=== PATIENT | male | born 1970 | race Caucasian/White ===

== ENCOUNTER → 2016-12-14 | Outpatient (CLI) | payer OTHER ==
[2016-12-14 14:26] LABS: LYME DISEASE AB IGG NEG (NEG); LYME DISEASE AB IGM NEG (NEG)
== END | disposition home or self-care (01) ==
LOC: C.LABPVFM 09:34
PROVIDERS: ATTEND Nurse Practitioner Family
DX: Z91.89 Other specified personal risk factors, not elsewhere classified (principal)

== ENCOUNTER 2019-12-05 01:39 | Inpatient (IN) ==
[2019-12-05] MEDS ORDERED: SODIUM CHLORIDE 0.9% 1000ML 2,000 ML IV ONE (02:05)
--- NOTE | 2019-12-05 02:10 | Emergency Department Note ---
Impression & Plan Septic shock, Pancytopenia, Elevated LFTs, Acute renal insufficiency ED Provider Note Name: KARLA GARCIA Age: 49 Sex: M Arrives Via: Walk-In Informant: Patient ED Provider: Jude Mccarthy MD Chief Complaint: Chills Impression: Septic Shock Pancytopenia Elevated LFTs Medical Decision Makin yr old healthy male arrives with 48 hours of feeling acutely ill with chills, fevers, rigors, weakness, leg cramping, diarrhea and generalized malaise/fatig ue. Exam he is hypotensive, dehydrated appearing, jaundice and acutely ill. Lungs clear, abdomen soft non-distended, and leg unremarkable without swelling. Immediately had 2 large bore IVs placed, 2 L NSS bolus started and full sepsis labs acquired. Given COVID pandemic testing was sent which returned negative. CXR unremarkable. EKG with some non specific st depressions and t wave abnormalities throughout with some intraventricular block. He was slightly improved BP though still not to his reported normal SBPs of 90s thus 3rd L NSS initiated. Initially improved BP but only transiently and thus 4th L NSS started and peripheral levophed ordered. With pancytopenia, elevated FLTs and reported fevers/chills in setting of recent multiple tick bites, felt that empiric tick borne illness treatment needed thus Rocephin/Doxy used as initial abx. I will note that with negative lyme returned hospitalist already on board and will start Zosyn as well. As patient with continued borderline BPs and need for further stabilization, plan to get to ICU for further management. On eval just prior to transfer he started noted increasing RUQ abdominal pain. At this time I ordered CT abd/pelv (wo con as renal injury), and made hospitalist aware who is comfortable with patient being sent directly to ICU from CT to avoid further delay on getting to ICU. CT results reviewed and immediately made hospitalist aware. Triage/Nursing Notes reviewed by Me Differentials:Infection, dehydration, metabolic abnormality, hypo/hyperglycemia, electrolyte disturbance, anemia, hypoxia, cardiac sources, intracerebral event, toxicologic, neurologic, as well as other pathologies. Vital Signs: reviewed and remarkable for hypotension/tachy Interventions: saline lock, NSS bolus 4L IV, Rocephin 2 gm IV, Doxy 100mg IV, Levophed IV drip Labs:Reviewed and remarkable for pancytopenia, elevated Cr, elevated LFTs with significant hyperbilirubinemia Imaging: X ray results are stated below per my interpretation: Chest: 1 view: No infiltrate, no effusion, normal cardiac border. [facility] Radiologist interpretation reviewed by me: "CT ABDOMEN & PELVIS Without Contrast: Mild hazy nodular airspace disease in the right middle and lower lobes and to lesser degree left lower lobe. May represent infectious/inflammatory pneumonitis. Gallbladder wall thickening and surrounding edema/pericholecystic fluid. May represent acute cholecystitis. Query mild periportal edema or biliary dilation within the liver. No obvious extrahepatic biliary dilation. Bladder wall thickening versus partial distention. Correlate for cystitis. Normal appendix. Mild wall thickening of the mid to distal colon versus partial distention. Radiologist: Priscilla Haney M.D." EKG:Per My Interpretation: Indication Sepsis: NSR 92 bpm, qtc 455. There are inferior ST depressions with an intraventricular block. No Ectopy. No previous for previous for comparison Cardiac/Tele Monitoring: Cardiac Monitoring: An Order was placed for continuous cardiac monitoring. The monitor shows a rate of 90 with a normal sinus rhythm. Consults:Dr Mick GREENE Hospitalist, [facility] ICU aware Plan: Disposition:Hospitalization. Condition: Critical Blood pressure:Hypotensive Prescriptions:None PDMP: n/a History of Present Illness:49 male arrives for evaluation of weakness. Patient notes 48 hours of rapidly worsening weakness and fatigue. Associated chills, rigors and feeling feverish as well as periods of severe diarrhea. Notes both legs feel very weak and heavy to the point of difficulty walking. Admits mild vague headache. Any time he stands symptoms are worse. He has no appetite but has been trying to drink water the last 2 days. No syncope, cp, sob, cough, back pain, abdominal pain, leg swelling, rashes, urinary symptoms. Diarrhea is watery, non bloody and periodic. Notes regular Tick exposure. No recent trauma injuries. No known Covid exposures. ROS: See above HPI for pertinent positives & negatives. A total of 10 systems reviewed and were otherwise negative. Past Medical History:None Past Surgical History:Cervical Surgery Family History:Father - CAD Social History:[place], No tobacco, lives with /children Home Medications:None Allergies:None Vitals:Blood Pressure: 76/47, Pulse 102, RR 18, T 36.8C, O2 97% on RA Physical Exam: GENERAL: Patient is ill appearing and in moderate distress. Dehydrated appearing EYES: Mild scleral jaundice, unremarkable pupils. ENT: Mucous membranes dry, no nasal congestion. NECK: No masses appreciated, nomeningismus, trachea is midline. RESPIRATORY: No dyspnea. Clear to auscultation and equal bilaterally. No wheeze, no rhonchi. CARDIOVASCULAR: Tachy.No murmurs, rubs, gallops appreciated. GASTROINTESTINAL: Abdomen soft, non-tender, no peritonitis.Bowel sounds positive.No masses appreciated. BACK: No midline tenderness, no CVA tenderness EXTREMITIES: Normal motion all extremities, no cyanosis, no edema. NEUROLOGIC: Alert and oriented, no acute motor or sensory deficits, no focal weakness, cranial nerves grossly intact. SKIN: No rash, no jaundice, no diaphoresis. PSYCH: Appropriate GCS: 15 ED Course: Times/Reassessments: Many evaluations and multiple discussions with staff and patient Critical Care: I have personally spent 45 minutes of critical care time in the direct management of this patient. Acute hypotensive septic shock in with elevated bili, pancytopenia, and bumped cr. This was a life/limb threatening event. This 45 minutes is in excess of all separately billable procedures. Jude Mccarthy MD Past Med/Surg History Medical History (Updated 12/05/19 @ 07:53 by ADILENE Wang) No significant past medical history Surgical History (Updated 12/05/19 @ 03:55 by Lawanda Barton DO) No significant past surgical history Family History (Updated 12/05/19 @ 03:55 by Lawanda Barton DO) Other Family history non-contributory Social History (Updated 12/05/19 @ 03:55 by Lawanda Barton DO) Smoking Status: Never smoker Hx Alcohol Use: No Hx Substance Use: No Preferred Language: Haitian Communication Ability: Effective Raise Driller Required: No Beliefs That Will Affect Care: None Current Living Situation: Spouse Feels Safe at Home: Yes Assistive Devices: Oxygen - Continuous Allergies Allergies Allergy/AdvReac Type Severity Reaction Status Date / Time No Known Allergies Allergy Verified 12/05/19 02:27 Home Meds Home Medications Medication Instructions Recorded Confirmed acetaminophen [Tylenol Extra 500 - 1,000 mg PO DIRECTED PRN 12/05/19 12/05/19 Strength] Results & Data (ED) Vital Signs Vital Signs - 24 hr 12/05/19 01:50 12/05/19 02:30 12/05/19 02:46 Temperature 36.8 C Temperature Source Oral Pulse Rate 102 H 98 H 91 H Pulse Rate from SpO2 Sensor 97 H 92 H Respiratory Rate 18 20 21 Respiratory Effort / Characteristics Non-Labored Spontaneous Respiratory Depth Normal Blood Pressure 76/47 L 91/58 L 86/50 L Blood Pressure Mean 56 63 52 Pulse Oximetry 97 99 98 Oxygen Delivery Method Room Air Sepsis Recent Fever Within 48 Hours No Sepsis New/Unexplained Change in Mental Status No Sepsis Action Taken by Nursing Physician Notified 12/05/19 03:03 12/05/19 03:13 12/05/19 03:15 Temperature Temperature Source Pulse Rate 85 85 85 Pulse Rate from SpO2 Sensor 85 Respiratory Rate 24 22 25 H Respiratory Effort / Characteristics Respiratory Depth Blood Pressure 73/45 L 74/49 L 73/49 L Blood Pressure Mean 51 59 55 Pulse Oximetry 98 97 97 Oxygen Delivery Method Sepsis Recent Fever Within 48 Hours Sepsis New/Unexplained Change in Mental Status Sepsis Action Taken by Nursing 12/05/19 03:25 12/05/19 03:30 12/05/19 03:35 Temperature Temperature Source Pulse Rate 84 82 85 Pulse Rate from SpO2 Sensor Respiratory Rate 23 24 24 Respiratory Effort / Characteristics Respiratory Depth Blood Pressure 77/53 L 81/42 L 77/55 L Blood Pressure Mean 62 55 62 Pulse Oximetry 99 94 98 Oxygen Delivery Method Sepsis Recent Fever Within 48 Hours Sepsis New/Unexplained Change in Mental Status Sepsis Action Taken by Nursing 12/05/19 03:40 Temperature Temperature Source Pulse Rate 80 Pulse Rate from SpO2 Sensor Respiratory Rate 24 Respiratory Effort / Characteristics Respiratory Depth Blood Pressure 78/56 L Blood Pressure Mean 66 Pulse Oximetry 97 Oxygen Delivery Method Sepsis Recent Fever Within 48 Hours Sepsis New/Unexplained Change in Mental Status Sepsis Action Taken by Nursing Laboratory Data Result diagrams: 12/05/19 02:02 12/05/19 04:56 Lab Results 12/05/19 12/05/19 12/05/19 Range/Units 02:02 02:02 02:02 WBC 1.15 L (4.8-10.8) K/uL RBC 4.17 L (4.7-6.1) M/uL Hgb 13.5 L (14.0-18.0) g/dL Hct 38.7 L (42-52) % MCV 92.8 (80-100) fL MCH 32.4 (25-34) pg MCHC 34.9 (32-36) g/dL RDW Std Deviation 43.3 (36.4-46.3) fL RDW Coeff of Katlyn 12.7 (11.5-14.5) % Plt Count 72 L (130-400) K/uL MPV 9.6 (7.4-10.4) fL Immature Gran % (Auto) 0.9 % Neut % (Auto) 92.1 % Lymph % (Auto) 6.1 % Carlisle % (Auto) 0.9 % Eos % (Auto) 0.0 % Baso % (Auto) 0.0 % Reticulocyte % (Auto) (0.5-2.0) % Neut # (Auto) 1.06 L (1.4-6.5) K/uL Lymph # (Auto) 0.07 L (1.2-3.4) K/uL Carlisle # (Auto) 0.01 L (0.11-0.59) K/uL Eos # (Auto) 0.00 (0-0.5) K/uL Baso # (Auto) 0.00 (0-0.2) K/uL Reticulocyte # (0.02-0.10) 10^6/uL Immature Gran # (Auto) 0.01 (0.00-0.02) K/uL Toxic Vacuolation 1+ Platelet Estimate Decreased L (Normal) PT (9.0-12.0) Seconds INR (0.9-1.1) Sodium 133 L (136-145) mmol/L Potassium (3.5-5.1) mmol/L Chloride 98 (98-107) mmol/L Carbon Dioxide 27 (21-32) mmol/L Anion Gap 8.0 (3-11) BUN 47 H (7-18) mg/dl Creatinine 2.19 H (0.6-1.4) mg/dl Est Cr Clr Drug Dosing Not Reportable Est GFR ( Amer) 39.8 Est GFR (Non-Af Amer) 34.3 BUN/Creatinine Ratio 21.4 H (10-20) Glucose 107 H (70-99) mg/dl Lactate (0.4-2.0) mmol/L Calcium 8.5 (8.5-10.1) mg/dl Magnesium (1.8-2.4) mg/dl Total Bilirubin 4.0 H (0.2-1) mg/dl Direct Bilirubin (0-0.2) mg/dl AST (15-37) U/L ALT 49 (12-78) U/L Alkaline Phosphatase 145 H (45-117) U/L Lactate Dehydrogenase (87-241) U/L Total Creatine Kinase (39-308) U/L Troponin I < 0.015 (0-0.045) ng/ml Total Protein 7.1 (6.4-8.2) gm/dl Albumin 3.0 L (3.4-5.0) gm/dl Lipase 341 (73-393) U/L Procalcitonin (0-0.5) ng/ml Lyme Disease IgG Ab Negative (Negative) Lyme Disease IgM Ab Negative (Negative) COVID-19 Eval Order COVID-19 PCR (Negative) 12/05/19 12/05/19 12/05/19 Range/Units 02:02 02:02 02:02 WBC (4.8-10.8) K/uL RBC (4.7-6.1) M/uL Hgb (14.0-18.0) g/dL Hct (42-52) % MCV (80-100) fL MCH (25-34) pg MCHC (32-36) g/dL RDW Std Deviation (36.4-46.3) fL RDW Coeff of Katlyn (11.5-14.5) % Plt Count (130-400) K/uL MPV (7.4-10.4) fL Immature Gran % (Auto) % Neut % (Auto) % Lymph % (Auto) % Carl[place] % (Auto) % Eos % (Auto) % Baso % (Auto) % Reticulocyte % (Auto) (0.5-2.0) % Neut # (Auto) (1.4-6.5) K/uL Lymph # (Auto) (1.2-3.4) K/uL Carlisle # (Auto) (0.11-0.59) K/uL Eos # (Auto) (0-0.5) K/uL Baso # (Auto) (0-0.2) K/uL Reticulocyte # (0.02-0.10) 10^6/uL Immature Gran # (Auto) (0.00-0.02) K/uL Toxic Vacuolation Platelet Estimate (Normal) PT 10.9 (9.0-12.0) Seconds INR 1.0 (0.9-1.1) Sodium (136-145) mmol/L Potassium (3.5-5.1) mmol/L Chloride (98-107) mmol/L Carbon Dioxide (21-32) mmol/L Anion Gap (3-11) BUN (7-18) mg/dl Creatinine (0.6-1.4) mg/dl Est Cr Clr Drug Dosing Est GFR ( Amer) Est GFR (Non-Af Amer) BUN/Creatinine Ratio (10-20) Glucose (70-99) mg/dl Lactate (0.4-2.0) mmol/L Calcium (8.5-10.1) mg/dl Magnesium (1.8-2.4) mg/dl Total Bilirubin (0.2-1) mg/dl Direct Bilirubin (0-0.2) mg/dl AST (15-37) U/L ALT (12-78) U/L Alkaline Phosphatase (45-117) U/L Lactate Dehydrogenase (87-241) U/L Total Creatine Kinase (39-308) U/L Troponin I (0-0.045) ng/ml Total Protein (6.4-8.2) gm/dl Albumin (3.4-5.0) gm/dl Lipase (73-393) U/L Procalcitonin (0-0.5) ng/ml Lyme Disease IgG Ab (Negative) Lyme Disease IgM Ab (Negative) COVID-19 Eval Order Covid19 Done at [facility] COVID-19 PCR NEGATIVE (Negative) 12/05/19 12/05/19 12/05/19 Range/Units 02:02 02:02 02:07 WBC (4.8-10.8) K/uL RBC (4.7-6.1) M/uL Hgb (14.0-18.0) g/dL Hct (42-52) % MCV (80-100) fL MCH (25-34) pg MCHC (32-36) g/dL RDW Std Deviation (36.4-46.3) fL RDW Coeff of Katlyn (11.5-14.5) % Plt Count (130-400) K/uL MPV (7.4-10.4) fL Immature Gran % (Auto) % Neut % (Auto) % Lymph % (Auto) % [place] % (Auto) % Eos % (Auto) % Baso % (Auto) % Reticulocyte % (Auto) 0.8 (0.5-2.0) % Neut # (Auto) (1.4-6.5) K/uL Lymph # (Auto) (1.2-3.4) K/uL [place] # (Auto) (0.11-0.59) K/uL Eos # (Auto) (0-0.5) K/uL Baso # (Auto) (0-0.2) K/uL Reticulocyte # 0.03 (0.02-0.10) 10^6/uL Immature Gran # (Auto) (0.00-0.02) K/uL Toxic Vacuolation Platelet Estimate (Normal) PT (9.0-12.0) Seconds INR (0.9-1.1) Sodium (136-145) mmol/L Potassium (3.5-5.1) mmol/L Chloride (98-107) mmol/L Carbon Dioxide (21-32) mmol/L Anion Gap (3-11) BUN (7-18) mg/dl Creatinine (0.6-1.4) mg/dl Est Cr Clr Drug Dosing Est GFR ( Amer) Est GFR (Non-Af Amer) BUN/Creatinine Ratio (10-20) Glucose (70-99) mg/dl Lactate 2.6 H* (0.4-2.0) mmol/L Calcium (8.5-10.1) mg/dl Magnesium (1.8-2.4) mg/dl Total Bilirubin (0.2-1) mg/dl Direct Bilirubin (0-0.2) mg/dl AST (15-37) U/L ALT (12-78) U/L Alkaline Phosphatase (45-117) U/L Lactate Dehydrogenase (87-241) U/L Total Creatine Kinase (39-308) U/L Troponin I (0-0.045) ng/ml Total Protein (6.4-8.2) gm/dl Albumin (3.4-5.0) gm/dl Lipase (73-393) U/L Procalcitonin 10.93 H (0-0.5) ng/ml Lyme Disease IgG Ab (Negative) Lyme Disease IgM Ab (Negative) COVID-19 Eval Order COVID-19 PCR (Negative) 12/05/19 12/05/19 12/05/19 Range/Units 03:33 03:33 03:33 WBC (4.8-10.8) K/uL RBC (4.7-6.1) M/uL Hgb (14.0-18.0) g/dL Hct (42-52) % MCV (80-100) fL MCH (25-34) pg MCHC (32-36) g/dL RDW Std Deviation (36.4-46.3) fL RDW Coeff of Katlyn (11.5-14.5) % Plt Count (130-400) K/uL MPV (7.4-10.4) fL Immature Gran % (Auto) % Neut % (Auto) % Lymph % (Auto) % [place] % (Auto) % Eos % (Auto) % Baso % (Auto) % Reticulocyte % (Auto) (0.5-2.0) % Neut # (Auto) (1.4-6.5) K/uL Lymph # (Auto) (1.2-3.4) K/uL [place] # (Auto) (0.11-0.59) K/uL Eos # (Auto) (0-0.5) K/uL Baso # (Auto) (0-0.2) K/uL Reticulocyte # (0.02-0.10) 10^6/uL Immature Gran # (Auto) (0.00-0.02) K/uL Toxic Vacuolation Platelet Estimate (Normal) PT (9.0-12.0) Seconds INR (0.9-1.1) Sodium (136-145) mmol/L Potassium 3.2 L (3.5-5.1) mmol/L Chloride (98-107) mmol/L Carbon Dioxide (21-32) mmol/L Anion Gap (3-11) BUN (7-18) mg/dl Creatinine (0.6-1.4) mg/dl Est Cr Clr Drug Dosing Est GFR ( Amer) Est GFR (Non-Af Amer) BUN/Creatinine Ratio (10-20) Glucose (70-99) mg/dl Lactate (0.4-2.0) mmol/L Calcium (8.5-10.1) mg/dl Magnesium 1.9 (1.8-2.4) mg/dl Total Bilirubin (0.2-1) mg/dl Direct Bilirubin 2.3 H (0-0.2) mg/dl AST 161 H (15-37) U/L ALT (12-78) U/L Alkaline Phosphatase 162 H (45-117) U/L Lactate Dehydrogenase 203 (87-241) U/L Total Creatine Kinase 3725 H (39-308) U/L Troponin I (0-0.045) ng/ml Total Protein (6.4-8.2) gm/dl Albumin (3.4-5.0) gm/dl Lipase (73-393) U/L Procalcitonin (0-0.5) ng/ml Lyme Disease IgG Ab (Negative) Lyme Disease IgM Ab (Negative) COVID-19 Eval Order COVID-19 PCR (Negative) Administered Medications Discontinued Medications Fentanyl Citrate (Fentanyl Citrate 1250mcg/250ml Nss) Confirm Administered Dose 1,250 mcg IV .STK-MED ONE Stop: 12/05/19 06:51 Last Admin: 12/05/19 07:38 Dose: Not Given Documented by: [id number] Sodium Chloride (Nss 1000ml) 2,000 mls @ 999 mls/hr IV .Q2H1M ONE Stop: 12/05/19 04:05 Last Infusion: 12/05/19 03:05 Dose: 0 mls/hr Documented by: [id number] Admin: 12/05/19 02:10 Dose: 999 mls/hr Documented by: [id number] Sodium Chloride (Nss 1000ml) 1,000 mls @ 999 mls/hr IV .Q1H1M ONE Stop: 12/05/19 03:31 Last Infusion: 12/05/19 03:44 Dose: 0 mls/hr Documented by: [id number] Admin: 12/05/19 02:43 Dose: 999 mls/hr Documented by: [id number] Ceftriaxone Sodium (Rocephin) 2,000 mg in 70 mls @ 140 mls/hr IV NOW STA Stop: 12/05/19 03:20 Last Infusion: 12/05/19 03:30 Dose: 0 mls/hr Documented by: [id number] Admin: 12/05/19 03:00 Dose: 140 mls/hr Documented by: [id number] Doxycycline Hyclate 100 mg/ (Dextrose) 110 mls @ 50 mls/hr IV NOW STA Stop: 12/05/19 05:02 Last Infusion: 12/05/19 06:00 Dose: 0 mls/hr Documented by: [id number] Admin: 12/05/19 03:32 Dose: 50 mls/hr Documented by: [id number] Norepinephrine Bitartrate 8 mg (/ Dextrose) 508 mls @ 68.313 mls/hr IV .Q7H27M [facility]; Protocol Stop: 01/04/20 03:14 Last Admin: 12/05/19 09:43 Dose: 0.22 mcg/kg/min, 68.3 mls/hr Documented by: [id number] Cosigned by: [id number] Titration: 12/05/19 09:43 Dose: 0.26 mcg/kg/min, 80.7 mls/hr Documented by: [id number] Cosigned by: [id number] Titration: 12/05/19 04:23 Dose: 0.26 mcg/kg/min, 80.7 mls/hr Documented by: [id number] Titration: 12/05/19 03:57 Dose: 0.2 mcg/kg/min, 62.1 mls/hr Documented by: [id number] Titration: 12/05/19 03:46 Dose: 0.16 mcg/kg/min, 49.7 mls/hr Documented by: [id number] Titration: 12/05/19 03:37 Dose: 0.1 mcg/kg/min, 31.1 mls/hr Documented by: [id number] Admin: 12/05/19 03:25 Dose: 0.05 mcg/kg/min, 15.5 mls/hr Documented by: [id number] Cosigned by: [id number] Sodium Chloride (Nss 1000ml) 1,000 mls @ 999 mls/hr IV .Q1H1M ONE Stop: 12/05/19 04:10 Last Infusion: 12/05/19 03:57 Dose: 0 mls/hr Documented by: [id number] Admin: 12/05/19 03:14 Dose: 999 mls/hr Documented by: [id number] Sodium Chloride (Nss 1000ml) 1,000 mls @ 200 mls/hr IV .Q5H BENNY Stop: 01/04/20 03:59 Last Infusion: 12/05/19 05:17 Dose: 0 mls/hr Documented by: [id number] Admin: 12/05/19 04:09 Dose: 200 mls/hr Documented by: [id number] Metronidazole (Flagyl) 500 mg in 100 mls @ 100 mls/hr IV Q8H BENNY Stop: 12/15/19 05:59 Last Infusion: 12/05/19 06:59 Dose: 0 mls/hr Documented by: [id number] Admin: 12/05/19 05:43 Dose: 100 mls/hr Documented by: [id number] Sodium Chloride (Nss 1000ml) 1,000 mls @ 125 mls/hr IV .Q8H BENNY Stop: 12/05/19 21:06 Last Admin: 12/05/19 05:42 Dose: 125 mls/hr Documented by: [id number] Vasopressin 20 units/ Sodium (Chloride) 101 mls @ 12.12 mls/hr IV .Q8H20M BENNY Stop: 01/04/20 05:14 Last Admin: 12/05/19 05:42 Dose: 0.04 unit/min, 12.1 mls/hr Documented by: [id number] Cosigned by: [id number] Cefepime HCl 2,000 mg/ Syringe 20 mls @ 5 mls/min IV ONE ONE; Protocol Stop: 12/05/19 05:48 Last Admin: 12/05/19 05:55 Dose: 5 mls/min Documented by: [id number] Potassium Chloride (K Hair / Wtr) 10 meq in 100 mls @ 100 mls/hr IV Q1H BENNY Stop: 12/05/19 09:59 Last Infusion: 12/05/19 10:45 Dose: 0 mls/hr Documented by: [id number] Admin: 12/05/19 09:43 Dose: 100 mls/hr Documented by: [id number] Infusion: 12/05/19 09:43 Dose: 100 mls/hr Documented by: [id number] Admin: 12/05/19 08:43 Dose: 100 mls/hr Documented by: [id number] Infusion: 12/05/19 08:41 Dose: 100 mls/hr Documented by: [id number] Admin: 12/05/19 07:41 Dose: 100 mls/hr Documented by: [id number] Infusion: 12/05/19 06:57 Dose: 100 mls/hr Documented by: [id number] Admin: 12/05/19 05:57 Dose: 100 mls/hr Documented by: [id number] Hydrocortisone Sodium (Succinate 100 mg/ Syringe) 2 mls @ 4 mls/min IV ONE ONE Stop: 12/05/19 06:31 Last Admin: 12/05/19 06:57 Dose: 4 mls/min Documented by: [id number] Fentanyl Citrate (Fentanyl Drip) 1,250 mcg in 250 mls @ 5 mls/hr IV .Q50H PRN; Protocol PRN Reason: Pain Stop: 12/19/19 06:47 Last Titration: 12/05/19 11:00 Dose: 0 mcg/hr, 0 mls/hr Documented by: [id number] Cosigned by: [id number] Admin: 12/05/19 06:59 Dose: 50 mcg/hr, 10 mls/hr Documented by: [id number] Cosigned by: [id number] Midazolam HCl (Midazolam Hcl 1 Mg/Ml 2ml Vial) Confirm Administered Dose 2 mg .ROUTE .STK-MED ONE Stop: 12/05/19 06:53 Last Admin: 12/05/19 06:58 Dose: 2 mg Documented by: [id number] Miscellaneous (Stat Iv Infusion Titration Per Protocol) 1 ea N/A NOW STA Stop: 12/05/19 03:11 Last Admin: 12/05/19 03:52 Dose: Not Given Documented by: [id number] Miscellaneous (Rapid Sequence Induction Bag) Confirm Administered Dose 1 ea .ROUTE .STK-MED ONE Stop: 12/05/19 06:06 Last Admin: 12/05/19 07:36 Dose: Not Given Documented by: [id number] Propofol (Propofol Iv Emulsion 10 Mg/Ml 100 Ml Vial) Confirm Administered Dose 1,000 mg IV .STK-MED ONE Stop: 12/05/19 06:07 Last Admin: 12/05/19 07:37 Dose: Not Given Documented by: [id number] Propofol (Propofol Iv Emulsion 10 Mg/Ml 100 Ml Vial) Confirm Administered Dose 1,000 mg IV .STK-MED ONE Stop: 12/05/19 08:22 Last Admin: 12/05/19 08:22 Dose: 1,000 mg Documented by: [id number] Cosigned by: [id number] Discharge Plan Visit Data Chief Complaint: Illness Stated Complaint: TIRED,DIARRHEA,PAIN,TROUBLE WALKING - 3 DAYS ED Provider: Jude Mccarthy Discharge Problem: Septic shock, Pancytopenia, Elevated LFTs, Acute renal insufficiency Patient Disposition: Admitted As Inpatient Discharge Instructions Interventions: ED Discharge Assessment Last Done: 12/05/19 04:30
[2019-12-05 02:28] LABS: Prothrombin Time 10.9 Seconds (9.0-12.0)
[2019-12-05] MEDS ORDERED: SODIUM CHLORIDE 0.9% 1000ML 1,000 ML IV ONE ×2 (02:31→03:10)
[2019-12-05 02:47] LABS: Hematocrit (blood only) 38.7 % (42-52); Hemoglobin 13.5 g/dL (14.0-18.0); Mean Corpuscular Hemoglobin 32.4 pg (25-34); Mean Corpuscular Hgb Conc 34.9 g/dL (32-36); Mean Corpuscular Volume 92.8 fL (80-100); Mean Platelet Volume 9.6 fL (7.4-10.4); Platelet Count 72 K/uL (130-400); RDW Coefficient of Variation 12.7 % (11.5-14.5); RDW Standard Deviation 43.3 fL (36.4-46.3); Red Blood Count 4.17 M/uL (4.7-6.1); White Blood Count 1.15 K/uL (4.8-10.8)
[2019-12-05 02:49] LABS: Immature Granulocytes # (auto) 0.01 K/uL (0.00-0.02); Immature Granulocytes % (auto) 0.9 %; Lymphocytes # (auto) 0.07 K/uL (1.2-3.4); Lymphocytes % (auto) 6.1 %; Monocytes # (auto) 0.01 K/uL (0.11-0.59); Monocytes % (auto) 0.9 %; Neutrophils # (auto) 1.06 K/uL (1.4-6.5); Neutrophils % (auto) 92.1 %; Platelet Estimate Decreased (Normal); Toxic Vacuolation 1+
[2019-12-05] MEDS ORDERED: cefTRIAXone SODIUM 2,000 MG/70 ML BAG IV STA (02:51)
[2019-12-05] MEDS ORDERED: DOXYCYCLINE HYCLATE 100 MG in DEXTROSE 5% 100 ML IV STA (02:51)
[2019-12-05 02:55] LABS: Alanine Aminotransferase 49 U/L (12-78); Alkaline Phosphatase 145 U/L (45-117); BUN Creatinine Ratio 21.4 (10-20); Blood Urea Nitrogen 47 mg/dl (7-18); Calcium 8.5 mg/dl (8.5-10.1); Carbon Dioxide 27 mmol/L (21-32); Chloride 98 mmol/L (98-107); Est GFR (African American) 39.8; Est GFR (Non-African American) 34.3; Glucose 107 mg/dl (70-99); Lipase 341 U/L (73-393); Sodium 133 mmol/L (136-145); Total Protein 7.1 gm/dl (6.4-8.2); Troponin I < 0.015 ng/ml (0-0.045)
[2019-12-05 03:07] LABS: Lyme Ab IgG w/WB Rflx Negative (Negative); Lyme Ab IgM w/WB Rflx Negative (Negative)
[2019-12-05] MEDS ORDERED: STAT IV Infusion **Titration per Protocol STA ×4 (03:10→06:54)
[2019-12-05] MEDS: NOREPINEPHRINE BIT INJ 8 MG in DEXTROSE 5% 500 ML IV SCH ×2 (03:25→09:43)
--- NOTE | 2019-12-05 03:45 | History & Physical Report ---
Date of Service December 05, 2019 Assessment & Plan (1) Hypotension: Patient is a 49yo C male with no significant past medical or surgical history presenting with acute onset fevers/chills/rigors/muscle spasm as well as RUQ pain and diarrhea. Patient hypotensive on arrival to the ER at 76/47. He has been given 3L NSS with no improvement in blood pressure. 1. Neurological: patient is mentating well, answering questions appropriately and following commands. No acute neurological deficits -Continue to monito 2. Cardiovascular: Patient hypotensive upon arrival. Blood pressure unresponsive to 3L NSS. He is currently receiving his 4th liter of IVF and Levophed has been initiated. ?septic shock + hypovolemia . No SOB/CP or hypoxia to suggest PE. Extremities are warm, troponin negative, no EKG evidence of ischemia to suggest cardiogenic source -Check random cortisol -Continue IVF - NSS at 125mL/hr x 2 liters -Levophed - titrate to target MAP of 65. Patient has two large PIVs in place 3. Pulmonary: adequate oxygenation and ventilation on room air. No acute process noted on CXR -Supplemental O2 as needed 4. Gastrointestinal: Patient with abnormal LFTs, obstructive pattern with elevated AP of 162 and Tbili of 4. Also with thrombocytopenia. INR is normal. ALT is normal as well. Repeat AST is pending. ?Cholangitis, ?Tick borne illness -Check Dbili -CT Scan without contrast ordered -Patient should have a CT of the abdomen performed when BP improves and he is more stable 5. Genitourinary: Elevated BUN=47 and Cr=2.19. K=3.2 and HCO3=27. Baseline renal function unknown. Presumed DOM -IVF as above -Monitor renal function -Monitor intake/output -Avoid nephrotoxic agents -Renal dosing where needed 6. Hematology: Patient with pancytopenia. Normochromic/normocytic anemia, leukopenia with neutropenia and lymphopenia, thrombocytopenia with plt=72, no active bleeding. ?Tick borne or viral illness as underlying cause. No history of prior hematological issues -Check peripheral blood smear -Check reticulocyte count -Check Anaplasmosis, Babesiosis -Neutropenic precautions 7. Infectious Disease: Suspect septic shock as underlying cause of hypotension, ?tick borne illness? intra-abdominal infection like cholangitis or acute cholecystitis -Cultures sent from ER, blood -Awaiting UA and culture -Anaplasmosis and Babesiosis ordered -CT scan without contrast ordered -Antibiotic coverage with Doxycycline 100mg IV BID for possible tick borne illness -Will cover with Ceftriaxone and Flagyl for possible intra-abdominal infection. 8. Endocrine: No active issues -Check random cortisol -MICU blood sugar management per protocol F/E/N - NSS at 125mL/hr, K slightly low at 3.2. Will hold repletion for now given DOM, NPO for now Ppx - Low risk for DVT, thrombocytopenia with plt=72. Will avoid chemoprophylaxis Code - Full Dispo - Admit to MICU Present on Admission?: Yes (2) Pancytopenia: Present on Admission?: Yes (3) Abnormal LFTs: Present on Admission?: Yes (4) DOM (acute kidney injury): Present on Admission?: Yes History of Present Illness Chief Complaint: fevers, chills, myalgias Primary Care Provider: ADILENE Jarvis Richard Cortez is a 49yo C male with no significant past medical or surgical history presenting with hypotension. Patient developed acute onset of fevers/chills/rigors/body aches/muscle spasm starting yesterday. He also has severe RUQ pain, jaundice and scleral icterus. He has had multiple episodes of watery, non-bloody diarrhea and one episode of non-bloody/non-bilious vomiting. He denies CP/cough/SOB. No contact with Covid-19 positive individuals. Covid- 19 testing here is NEGATIVE Patient has had multiple tick bites in the past and has been treated for Lyme disease before. No recent tick bites. No sick contacts or contacts with similar symptoms No recent travel Upon arrival to the ER patient was afebrile, hypotensive at 76/47, tachycardic to 102bpm. He was administered 3L of NSS with no improvement in blood pressure, currently 76/53. Patient with no additional complaints at this time. ER Courese: Ceftriaxone 2gm, Doxycycline 100mg, NSS x 3L, Levophed gtt initiated Allergies Allergy/AdvReac Type Severity Reaction Status Date / Time No Known Allergies Allergy Verified 12/05/19 02:27 Home Medications Home Medications Medication Instructions Recorded Confirmed Type acetaminophen [Tylenol Extra 500 - 1,000 mg PO DIRECTED PRN 09/26/20 09/26/20 History Strength] Past Med/Surg History Medical History (Updated 12/05/19 @ 04:04 by Lawanda Barton DO) No significant past medical history Surgical History (Updated 12/05/19 @ 03:55 by Lawanda Barton DO) No significant past surgical history Family History (Updated 12/05/19 @ 03:55 by Lawanda Barton DO) Other Family history non-contributory Social History (Updated 12/05/19 @ 03:55 by Lawanda Barton DO) Smoking Status: Never smoker Hx Alcohol Use: No Hx Substance Use: No Feels Safe at Home: Yes Review of Systems Review of Systems: All systems reviewed & are unremarkable except as noted in HPI & below Physical Exam Physical Exam: General: thin male resting in bed, mild distress secondary to RUQ discomfort Skin: warm, dry, intact, no rashes or lesions, +Jaundice HEENT: NC/AT, PERRL, EOMI, +icteric sclera, conjunctiva without injection, external ear normal to inspection and nontender, nares patent, dry mucus membranes, dentition intact, no oropharyngeal lesions, neck supple, trachea midline, no LAD, no thyromegaly, no JVD Heart: +S1/S2, regular, no m/r/g Lungs: equal air entry bilaterally, no rales/rhonchi/wheezes Abd: +BS, soft, ND, +RUQ tenderness with voluntary guarding Ext: warm, 2+ pulses in UE/LE bilaterally, no clubbing/cyanosis or edema Neuro: nonfocal, patient AA&O x 4, speech intact, no facial droop, moving all extremities on command with equal strength 5/5 Results & Data Results & Data ([facility]) Vital Signs (Past 12 Hours) Vital Signs Temp Pulse Resp BP Pulse Ox 12/05/19 03:35 85 24 77/55 L 98 12/05/19 03:30 82 24 81/42 L 94 12/05/19 03:25 84 23 77/53 L 99 12/05/19 03:15 85 25 H 73/49 L 97 12/05/19 03:13 85 22 74/49 L 97 12/05/19 03:03 85 24 73/45 L 98 12/05/19 02:46 91 H 21 86/50 L 98 12/05/19 02:30 98 H 20 91/58 L 99 12/05/19 01:50 36.8 C 102 H 18 76/47 L 97 Laboratory Results Lab Results 12/05/19 12/05/19 12/05/19 Range/Units 02:02 02:02 02:02 WBC 1.15 L (4.8-10.8) K/uL RBC 4.17 L (4.7-6.1) M/uL Hgb 13.5 L (14.0-18.0) g/dL Hct 38.7 L (42-52) % MCV 92.8 (80-100) fL MCH 32.4 (25-34) pg MCHC 34.9 (32-36) g/dL RDW Std Deviation 43.3 (36.4-46.3) fL RDW Coeff of Katlyn 12.7 (11.5-14.5) % Plt Count 72 L (130-400) K/uL MPV 9.6 (7.4-10.4) fL Immature Gran % (Auto) 0.9 % Neut % (Auto) 92.1 % Lymph % (Auto) 6.1 % Acadia % (Auto) 0.9 % Eos % (Auto) 0.0 % Baso % (Auto) 0.0 % Neut # (Auto) 1.06 L (1.4-6.5) K/uL Lymph # (Auto) 0.07 L (1.2-3.4) K/uL Acadia # (Auto) 0.01 L (0.11-0.59) K/uL Eos # (Auto) 0.00 (0-0.5) K/uL Baso # (Auto) 0.00 (0-0.2) K/uL Immature Gran # (Auto) 0.01 (0.00-0.02) K/uL Toxic Vacuolation 1+ Platelet Estimate Decreased L (Normal) PT (9.0-12.0) Seconds INR (0.9-1.1) Sodium 133 L (136-145) mmol/L Potassium (3.5-5.1) mmol/L Chloride 98 (98-107) mmol/L Carbon Dioxide 27 (21-32) mmol/L Anion Gap 8.0 (3-11) BUN 47 H (7-18) mg/dl Creatinine 2.19 H (0.6-1.4) mg/dl Est Cr Clr Drug Dosing Not Reportable Est GFR ( Amer) 39.8 Est GFR (Non-Af Amer) 34.3 BUN/Creatinine Ratio 21.4 H (10-20) Glucose 107 H (70-99) mg/dl Lactate (0.4-2.0) mmol/L Calcium 8.5 (8.5-10.1) mg/dl Magnesium (1.8-2.4) mg/dl Total Bilirubin 4.0 H (0.2-1) mg/dl Direct Bilirubin (0-0.2) mg/dl AST (15-37) U/L ALT 49 (12-78) U/L Alkaline Phosphatase 145 H (45-117) U/L Total Creatine Kinase (39-308) U/L Troponin I < 0.015 (0-0.045) ng/ml Total Protein 7.1 (6.4-8.2) gm/dl Albumin 3.0 L (3.4-5.0) gm/dl Lipase 341 (73-393) U/L Lyme Disease IgG Ab Negative (Negative) Lyme Disease IgM Ab Negative (Negative) COVID-19 Eval Order COVID-19 PCR (Negative) 12/05/19 12/05/19 12/05/19 Range/Units 02:02 02:02 02:02 WBC (4.8-10.8) K/uL RBC (4.7-6.1) M/uL Hgb (14.0-18.0) g/dL Hct (42-52) % MCV (80-100) fL MCH (25-34) pg MCHC (32-36) g/dL RDW Std Deviation (36.4-46.3) fL RDW Coeff of Katlyn (11.5-14.5) % Plt Count (130-400) K/uL MPV (7.4-10.4) fL Immature Gran % (Auto) % Neut % (Auto) % Lymph % (Auto) % Acadia % (Auto) % Eos % (Auto) % Baso % (Auto) % Neut # (Auto) (1.4-6.5) K/uL Lymph # (Auto) (1.2-3.4) K/uL Acadia # (Auto) (0.11-0.59) K/uL Eos # (Auto) (0-0.5) K/uL Baso # (Auto) (0-0.2) K/uL Immature Gran # (Auto) (0.00-0.02) K/uL Toxic Vacuolation Platelet Estimate (Normal) PT 10.9 (9.0-12.0) Seconds INR 1.0 (0.9-1.1) Sodium (136-145) mmol/L Potassium (3.5-5.1) mmol/L Chloride (98-107) mmol/L Carbon Dioxide (21-32) mmol/L Anion Gap (3-11) BUN (7-18) mg/dl Creatinine (0.6-1.4) mg/dl Est Cr Clr Drug Dosing Est GFR ( Amer) Est GFR (Non-Af Amer) BUN/Creatinine Ratio (10-20) Glucose (70-99) mg/dl Lactate (0.4-2.0) mmol/L Calcium (8.5-10.1) mg/dl Magnesium (1.8-2.4) mg/dl Total Bilirubin (0.2-1) mg/dl Direct Bilirubin (0-0.2) mg/dl AST (15-37) U/L ALT (12-78) U/L Alkaline Phosphatase (45-117) U/L Total Creatine Kinase (39-308) U/L Troponin I (0-0.045) ng/ml Total Protein (6.4-8.2) gm/dl Albumin (3.4-5.0) gm/dl Lipase (73-393) U/L Lyme Disease IgG Ab (Negative) Lyme Disease IgM Ab (Negative) COVID-19 Eval Order Covid19 Done at [facility] COVID-19 PCR NEGATIVE (Negative) 12/05/19 12/05/19 Range/Units 02:07 03:33 WBC (4.8-10.8) K/uL RBC (4.7-6.1) M/uL Hgb (14.0-18.0) g/dL Hct (42-52) % MCV (80-100) fL MCH (25-34) pg MCHC (32-36) g/dL RDW Std Deviation (36.4-46.3) fL RDW Coeff of Katlyn (11.5-14.5) % Plt Count (130-400) K/uL MPV (7.4-10.4) fL Immature Gran % (Auto) % Neut % (Auto) % Lymph % (Auto) % Acad[place] % (Auto) % Eos % (Auto) % Baso % (Auto) % Neut # (Auto) (1.4-6.5) K/uL Lymph # (Auto) (1.2-3.4) K/uL Acadia # (Auto) (0.11-0.59) K/uL Eos # (Auto) (0-0.5) K/uL Baso # (Auto) (0-0.2) K/uL Immature Gran # (Auto) (0.00-0.02) K/uL Toxic Vacuolation Platelet Estimate (Normal) PT (9.0-12.0) Seconds INR (0.9-1.1) Sodium (136-145) mmol/L Potassium 3.2 L (3.5-5.1) mmol/L Chloride (98-107) mmol/L Carbon Dioxide (21-32) mmol/L Anion Gap (3-11) BUN (7-18) mg/dl Creatinine (0.6-1.4) mg/dl Est Cr Clr Drug Dosing Est GFR ( Amer) Est GFR (Non-Af Amer) BUN/Creatinine Ratio (10-20) Glucose (70-99) mg/dl Lactate 2.6 H* (0.4-2.0) mmol/L Calcium (8.5-10.1) mg/dl Magnesium (1.8-2.4) mg/dl Total Bilirubin (0.2-1) mg/dl Direct Bilirubin (0-0.2) mg/dl AST (15-37) U/L ALT (12-78) U/L Alkaline Phosphatase (45-117) U/L Total Creatine Kinase (39-308) U/L Troponin I (0-0.045) ng/ml Total Protein (6.4-8.2) gm/dl Albumin (3.4-5.0) gm/dl Lipase (73-393) U/L Lyme Disease IgG Ab (Negative) Lyme Disease IgM Ab (Negative) COVID-19 Eval Order COVID-19 PCR (Negative) Diagnostic Findings CXR - by my interpretation - trachea is midline, normal cardiac silhouette, no evidence of PNA, PTX or volume overload ECG Additional Comments: EKG with NSR at 92, normal axis, YJ=534, HJY=767, QUi=291, interventricular conduction delay. No previous EKGs available for comparison Code Status & VTE Plan Code Status Full Critical Care Time Critical Care Time: Yes Total Critical Care Time: 55 PG Care Time/CCT Total # of Minutes Spent Total Time Spent with Patient: Total time spent is greater than 50% in coordina tion of care (as documented) at patient's floor/unit and/or counseling patient: Critical Care Time: Yes Total Critical Care Time: 55 Coding Level of Care Code None Diagnoses Hypotension I95.9 Pancytopenia D61.818 Abnormal LFTs R94.5 DOM (acute kidney injury) N17.9 Additional Codes Critical Care Time - Critical Care Time: Yes ([id number]) Time Spent (min) 55
[2019-12-05 03:55] LABS: Potassium 3.2 mmol/L (3.5-5.1)
[2019-12-05] MEDS ORDERED: SODIUM CHLORIDE 0.9% 1000ML 1,000 ML IV SCH ×2 (04:00→05:07)
[2019-12-05 04:16] LABS: Bilirubin Direct 2.3 mg/dl (0-0.2); Magnesium 1.9 mg/dl (1.8-2.4)
[2019-12-05] MEDS ORDERED: ICU PROTOCOL FOR HYPERGLYCEMIA PRN (05:07)
[2019-12-05] MEDS ORDERED: VASOPRESSIN 20 UNITS in 0.9 % SODIUM CHLORIDE 100 ML IV SCH (05:15)
[2019-12-05] MEDS ORDERED: INFLUENZA VIRUS QUAD VACCINE 0.5 ML SYR IM ONE (05:23)
[2019-12-05] MEDS ORDERED: INFLUENZA ADMINISTRATION CHARGE ONE (05:23)
[2019-12-05 05:28] LABS: BUN Creatinine Ratio 19.1 (10-20); Calcium 7.3 mg/dl (8.5-10.1); Creatinine Clr Calc Pharmacy 41.3 ml/min; Est GFR (African American) 36.9; Est GFR (Non-African American) 31.9; Potassium 3.1 mmol/L (3.5-5.1)
[2019-12-05] MEDS ORDERED: CEFEPIME 2,000 MG in SYRINGE 0 ML IV ONE (05:45)
[2019-12-05] MEDS: POTASSIUM CHLORIDE / WTR 10 MEQ/100 ML PLCT IV SCH ×4 (05:57→09:43)
[2019-12-05] MEDS ORDERED: metroNIDAZOLE 500 MG/100 ML BAG IV SCH (06:00)
[2019-12-05] MEDS ORDERED: DOXYCYCLINE HYCLATE 100 MG in DEXTROSE 5% 100 ML IV SCH (06:00)
[2019-12-05] MEDS ORDERED: RAPID SEQUENCE INDUCTION BAG ONE (06:05)
[2019-12-05] MEDS ORDERED: PROPOFOL IV EMULSION 10 MG/ML 100 ML VIAL IV ONE ×2 (06:06→08:21)
[2019-12-05 06:08] LABS: Reticulocyte % 0.8 % (0.5-2.0); Reticulocytes # 0.03 10^6/uL (0.02-0.10)
--- NOTE | 2019-12-05 06:18 | Surgery Consultation ---
Date of Consultation December 05, 2019 Assessment & Plan (1) Septic shock: (2) Pancytopenia: (3) Elevated LFTs: (4) Acute renal insufficiency: (5) Hypotension: (6) Acute cholecystitis: pt is a 49 year -old male who was admitted to ICU for septic shock, IMP: septic shock, pneumonia? Acute cholecystitis, cholangitis? base on severe septic shock, renal failure, pneumonia, acute cholecystitis, pt is candidate for percutaneous drainage gallbladder, no intervention radiologist at this [facility], recommend to transfer to tertiary for further diagnosis and treatment, D/w benefits, risks and alternatives of the transfer, pt understood, he agrees with the transfer. D/W ICU attending. Present on Admission?: Yes History of Present Illness Attending Physician: Lawanda Barton, History of Present Illness Chief Complaint: fevers, chills, myalgias Primary Care Provider: ADILENE Jarvis Richard Cortez is a 49yo C male with no significant past medical or surgical history presenting with hypotension. Patient developed acute onset of fevers/chills/rigors/body aches/muscle spasm starting yesterday. He also has severe RUQ pain, jaundice and scleral icterus. He has had multiple episodes of watery, non-bloody diarrhea and one episode of non-bloody/non-bilious vomiting. He denies CP/cough/SOB. No contact with Covid-19 positive individuals. Covid- 19 testing here is NEGATIVE Patient has had multiple tick bites in the past and has been treated for Lyme disease before. No recent tick bites. No sick contacts or contacts with similar symptoms No recent travel Upon arrival to the ER patient was afebrile, hypotensive at 76/47, tachycardic to 102bpm. He was administered 3L of NSS with no improvement in blood pressure, currently 76/53. Patient with no additional complaints at this time. I ( Brooke Henley MD ) got a call for consult acute cholecystitis with septic shock, I reviewed pt's H/P, labs, CT scan with pt, ER Courese: Ceftriaxone 2gm, Doxycycline 100mg, NSS x 3L, Levophed gtt initiated Allergies Allergy/AdvReac Type Severity Reaction Status Date / Time No Known Allergies Allergy Verified 12/05/19 02:27 Home Medications Home Medications Medication Instructions Recorded Confirmed Type acetaminophen [Tylenol Extra 500 - 1,000 mg PO DIRECTED PRN 12/05/19 12/05/19 History Strength] Past Med/Surg History Medical History (Updated 12/05/19 @ 04:04 by Lawanda Barton DO) No significant past medical history Surgical History (Updated 12/05/19 @ 03:55 by Lawanda Barton DO) No significant past surgical history Family History (Updated 12/05/19 @ 03:55 by Lawanda Barton DO) Other Family history non-contributory Social History (Updated 12/05/19 @ 03:55 by Lawanda Barton DO) Smoking Status: Never smoker Hx Alcohol Use: No Hx Substance Use: No Feels Safe at Home: Yes Review of Systems Review of Systems: All systems reviewed & are unremarkable except as noted in HPI & below Allergies Allergy/AdvReac Type Severity Reaction Status Date / Time No Known Allergies Allergy Verified 12/05/19 02:27 Home Medications Home Medications Medication Instructions Recorded Confirmed Type acetaminophen [Tylenol Extra 500 - 1,000 mg PO DIRECTED PRN 12/05/19 12/05/19 History Strength] Patient History Medical History (Updated 12/05/19 @ 06:22 by Brooke Henley MD) No significant past medical history Surgical History (Updated 12/05/19 @ 03:55 by Lawanda Barton DO) No significant past surgical history Family History (Updated 12/05/19 @ 03:55 by Lawanda Barton DO) Other Family history non-contributory Social History (Updated 12/05/19 @ 03:55 by Lawanda Barton DO) Smoking Status: Never smoker Hx Alcohol Use: No Hx Substance Use: No Preferred Language: Maltese Communication Ability: Effective [employer] Intern[employer] Required: No Beliefs That Will Affect Care: None Current Living Situation: Spouse Feels Safe at Home: Yes Assistive Devices: Oxygen - Continuous Review of Systems Review of Systems: All systems reviewed & are unremarkable except as noted in HPI & below Constitutional: as per Subjective / HPI Eyes: as per Subjective / HPI Ear, Nose, Mouth, Throat: as per Subjective / HPI Respiratory: as per Subjective / HPI Cardiovascular: as per Subjective / HPI Gastrointestinal: as per Subjective / HPI Genitourinary: + as per Subjective / HPI Musculoskeletal: as per Subjective / HPI Integumentary: as per Subjective / HPI Neurologic: as per Subjective / HPI Psychiatric: as per Subjective / HPI Endocrine: as per Subjective / HPI Hematologic / Lymphatic: as per Subjective / HPI Allergy / Immunological: as per Subjective / HPI Physical Exam Constitutional: WD/WN, vitals as above well developed, well nourished, + acute distress and + ill appearing Eyes: PERRL, conjunctivae normal, anicteric sclerae ENMT: external ear and nose normal, oropharynx normal Neck: trachea midline, no thyromegaly Respiratory: on )2 10 L/min mask Cardiovascular: RRR, no murmur, no edema Rate/Rhythm: regular rate and regular rhythm Heart Sounds: normal S1 and normal S2 Gastrointestinal (Abdomen): soft, significant tenderness at RUQ, no rebound pain, no distend, BS + Musculoskeletal: no cyanosis or clubbing, extremities motor strength 5/5 Skin: no rashes, warm and dry Neurologic: patellar DTR's 2+ bilat, sensation intact Psychiatric: Orientation: alert and oriented x 3 Results & Data ([facility]) Vital Signs (Past 12 Hours) Vital Signs Temp Pulse Pulse Resp BP BP Pulse Ox 12/05/19 04:45 37 C 95 H 18 82/62 L 97 12/05/19 04:40 89 20 90/58 L 97 12/05/19 04:30 88 22 84/62 L 95 12/05/19 04:25 88 20 74/46 L 94 12/05/19 04:20 87 20 67/44 L 94 12/05/19 04:15 87 22 73/44 L 93 12/05/19 04:10 88 22 71/43 L 93 12/05/19 04:05 87 24 85/57 L 95 12/05/19 04:00 81 24 76/52 L 95 12/05/19 03:56 84 24 73/47 L 95 12/05/19 03:55 90 24 69/45 L 94 12/05/19 03:50 83 24 76/54 L 95 12/05/19 03:45 79 24 76/53 L 12/05/19 03:40 80 24 78/56 L 97 12/05/19 03:35 85 24 77/55 L 98 12/05/19 03:30 82 24 81/42 L 94 12/05/19 03:25 84 23 77/53 L 99 12/05/19 03:15 85 25 H 73/49 L 97 12/05/19 03:13 85 22 74/49 L 97 12/05/19 03:03 85 24 73/45 L 98 12/05/19 02:46 91 H 21 86/50 L 98 12/05/19 02:30 98 H 20 91/58 L 99 12/05/19 01:50 36.8 C 102 H 18 76/47 L 97 Laboratory Results Abnormal lab results 12/05/19 12/05/19 12/05/19 Range/Units 02:02 02:02 02:02 WBC 1.15 L (4.8-10.8) K/uL RBC 4.17 L (4.7-6.1) M/uL Hgb 13.5 L (14.0-18.0) g/dL Hct 38.7 L (42-52) % Plt Count 72 L (130-400) K/uL Neut # (Auto) 1.06 L (1.4-6.5) K/uL Lymph # (Auto) 0.07 L (1.2-3.4) K/uL Lawrence # (Auto) 0.01 L (0.11-0.59) K/uL Platelet Estimate Decreased L (Normal) Sodium 133 L (136-145) mmol/L Potassium (3.5-5.1) mmol/L BUN 47 H (7-18) mg/dl Creatinine 2.19 H (0.6-1.4) mg/dl BUN/Creatinine Ratio 21.4 H (10-20) Glucose 107 H (70-99) mg/dl Lactate (0.4-2.0) mmol/L Calcium (8.5-10.1) mg/dl Total Bilirubin 4.0 H (0.2-1) mg/dl Direct Bilirubin (0-0.2) mg/dl AST (15-37) U/L Alkaline Phosphatase 145 H (45-117) U/L Total Creatine Kinase (39-308) U/L Albumin 3.0 L (3.4-5.0) gm/dl Procalcitonin 10.93 H (0-0.5) ng/ml 12/05/19 12/05/19 12/05/19 Range/Units 02:07 03:33 03:33 WBC (4.8-10.8) K/uL RBC (4.7-6.1) M/uL Hgb (14.0-18.0) g/dL Hct (42-52) % Plt Count (130-400) K/uL Neut # (Auto) (1.4-6.5) K/uL Lymph # (Auto) (1.2-3.4) K/uL Lawrence # (Auto) (0.11-0.59) K/uL Platelet Estimate (Normal) Sodium (136-145) mmol/L Potassium 3.2 L (3.5-5.1) mmol/L BUN (7-18) mg/dl Creatinine (0.6-1.4) mg/dl BUN/Creatinine Ratio (10-20) Glucose (70-99) mg/dl Lactate 2.6 H* (0.4-2.0) mmol/L Calcium (8.5-10.1) mg/dl Total Bilirubin (0.2-1) mg/dl Direct Bilirubin 2.3 H (0-0.2) mg/dl AST 161 H (15-37) U/L Alkaline Phosphatase 162 H (45-117) U/L Total Creatine Kinase 3725 H (39-308) U/L Albumin (3.4-5.0) gm/dl Procalcitonin (0-0.5) ng/ml 12/05/19 12/05/19 Range/Units 04:56 04:56 WBC (4.8-10.8) K/uL RBC (4.7-6.1) M/uL Hgb (14.0-18.0) g/dL Hct (42-52) % Plt Count (130-400) K/uL Neut # (Auto) (1.4-6.5) K/uL Lymph # (Auto) (1.2-3.4) K/uL Lawrence # (Auto) (0.11-0.59) K/uL Platelet Estimate (Normal) Sodium (136-145) mmol/L Potassium 3.1 L (3.5-5.1) mmol/L BUN 44 H (7-18) mg/dl Creatinine 2.33 H (0.6-1.4) mg/dl BUN/Creatinine Ratio (10-20) Glucose 131 H (70-99) mg/dl Lactate 2.5 H* (0.4-2.0) mmol/L Calcium 7.3 L (8.5-10.1) mg/dl Total Bilirubin (0.2-1) mg/dl Direct Bilirubin (0-0.2) mg/dl AST (15-37) U/L Alkaline Phosphatase (45-117) U/L Total Creatine Kinase (39-308) U/L Albumin (3.4-5.0) gm/dl Procalcitonin (0-0.5) ng/ml CT scan- acute cholecystitis, pneumonia?
[2019-12-05] MEDS ORDERED: HYDROCORTISONE SOD 100 MG in SYRINGE 0 ML IV ONE (06:30)
--- NOTE | 2019-12-05 06:32 | Anesthesiology Progress Note ---
Date of Service Asked by ICU staff to assist in intubation for 49 yo male. Pt admitted diagnosed with acute cholecystitis, aspiration pneumonitis, and sepsis. Planned tor transfer to [facility] and intubation has been deemed necessary for transport by ICU staff and [facility] accepting physician. Airway exam is benign, teeth intact. VSS, SaO2 100% on 02 mask. Pre-O2 with BVM 100% O2. At request of staff, I agreed to medicate pt. I gave propofol 200 mg and Sux 120mg IV. PA intubated pt orally using Glidescope without difficulty. + BLBS ausculted, + ETCO2 detected. CXR pending. Pt left in care of ICU staff and hospitalist. Transfer to [facility] pending. December 05, 2019 Assessment & Plan Admission and Anticipated Discharge Date Admission Date: December 05, 2019 Physical Exam Vital Signs: Last Vital Signs Temp 37 C 12/05/19 04:45 Pulse 95 H 12/05/19 04:45 Resp 18 12/05/19 04:45 BP 82/62 L 12/05/19 04:45 Pulse Ox 97 12/05/19 04:45 Results & Data ([facility]) Medications Administered Norepinephrine Bitartrate 8 mg (/ Dextrose) 508 mls @ 80.734 mls/hr IV .Q6H18M BENNY; Protocol Stop: 01/04/20 03:14 Last Titration: 12/05/19 04:23 Dose: 0.26 mcg/kg/min, 80.7 mls/hr Documented by: [id number] Titration: 12/05/19 03:57 Dose: 0.2 mcg/kg/min, 62.1 mls/hr Documented by: [id number] Titration: 12/05/19 03:46 Dose: 0.16 mcg/kg/min, 49.7 mls/hr Documented by: [id number] Titration: 12/05/19 03:37 Dose: 0.1 mcg/kg/min, 31.1 mls/hr Documented by: [id number] Admin: 12/05/19 03:25 Dose: 0.05 mcg/kg/min, 15.5 mls/hr Documented by: [id number] Cosigned by: [id number] Metronidazole (Flagyl) 500 mg in 100 mls @ 100 mls/hr IV Q8H [facility] Stop: 12/15/19 05:59 Last Admin: 12/05/19 05:43 Dose: 100 mls/hr Documented by: [id number] Sodium Chloride (Nss 1000ml) 1,000 mls @ 125 mls/hr IV .Q8H [facility] Stop: 12/05/19 21:06 Last Admin: 12/05/19 05:42 Dose: 125 mls/hr Documented by: [id number] Vasopressin 20 units/ Sodium (Chloride) 101 mls @ 12.12 mls/hr IV .Q8H20M [facility] Stop: 01/04/20 05:14 Last Admin: 12/05/19 05:42 Dose: 0.04 unit/min, 12.1 mls/hr Documented by: [id number] Cosigned by: [id number] Potassium Chloride (K Hair / Wtr) 10 meq in 100 mls @ 100 mls/hr IV Q1H [facility] Stop: 12/05/19 09:59 Last Admin: 12/05/19 05:57 Dose: 100 mls/hr Documented by: [id number]
[2019-12-05] MEDS ORDERED: FENTANYL BOLUS FROM BAG IV PRN (06:48)
[2019-12-05] MEDS ORDERED: fentaNYL DRIP 1,250 MCG/250 ML BAG IV PRN (06:48)
[2019-12-05] MEDS ORDERED: MIDAZOLAM HCL 1 MG/ML 2ML VIAL ONE (06:52)
[2019-12-05] MEDS ORDERED: MIDAZOLAM HCL 125 MG/250 ML BAG IV PRN (06:54)
[2019-12-05] MEDS ORDERED: MIDAZOLAM BOLUS FROM BAG IV PRN (06:54)
--- NOTE | 2019-12-05 07:25 | Critical Care Consultation ---
Date of Consultation December 05, 2019 Assessment & Plan (1) Acute cholecystitis: Reason Critically Ill: 49-year-old male without medical history presents to the ICU with severe sepsis with likely source of acute cholecystitis per CT imaging. Now intubated and on multiple vasopressors for septic shock. Neuro - Sedation: Versed/fentanyl drips Cardiac - Septic shockgiven patient exam with CT imaging most likely source appears to be cholecystitis and patient to undergo transfer as discussed below -Was also noted to have infectious/inflammatory process and bilateral lung bello on CT imaging, most likely aspiration as patient has continually been vomiting -Now requiring vasopressors, levo and vaso-titrating for maps greater than 65 -CVC and A-line inserted emergently -Cortisol level pending, did stress dose with hydrocortisone 100 mg after lab draw No history of heart failure and patient is reportedly athletic at baseline, troponin negative -Continuous monitoring on telemetry -We will wean pressors as tolerated Respiratory - Acute hypoxic respiratory failurenow mechanically ventilated -ETT 8.0 24 at the teeth, vent settings: 22/500/5/40 percent -Patient did become increasingly hypoxic with significantly increased oxygen demand, decision made to intubate prior to transfer to tertiary center to secure airway GI - CholecystitisCT abdomen preliminary report showed pericholecystic fluid with gallbladder thickening suspicion for cholecystitis and patient presents with right upper quadrant abdominal pain and tenderness -Elevated LFTs and jaundice consistent with diagnosis -Given severity of sepsis patient not candidate for surgical intervention and [place] [facility] plan for percutaneous drainage with IR RENAL/LYTES - AKIlikely prerenal/ATN in the setting of hypotension/septic shock -We will continue IV fluid resuscitation and maintain maps greater than 65 with vasopressors -We will avoid nephrotoxins and renally adjust medications -Monitor creatinine and replete electrolytes as indicated - Foleystrict I's and O's ENDO - No history of diabetes or thyroid disease ICU hyperglycemic protocol HEME - Pancytopeniabone marrow suppression in the event of severe sepsis? -Currently no indication for transfusion -Would defer further work-up to [facility] as patient is now transferring ID - Pro-Darian and lactate elevated Primary source likely cholecystitis given CT abdomen, however noted to have pneumonitis which is likely from aspiration Blood cultures pending UA pending Concern for anaplasmosis given pancytopenia, labs pending COVID-19 negative Continue broad-spectrum antibiotics with cefepime, Flagyl, doxy LINES/IV ACCESS - CVC, A-line, peripheral IVs, ETT, OG tube DVT PROPHYLAXIS - SCDs I have personally spent 70 minutes of critical care time in the direct management of this patient. This is a life/limb threatening event. This includes time spent evaluating patient, direct bedside care, chart review, placing orders, interpretation of diagnostic studies, discussion with consultants, patient, and family members, as well as other required patient management activities. This time is exclusive of all separately billable procedures, and teaching time and separate from and in addition to any other critical care service time. Thank you for allowing us to participate in the care of this patient. Please refer to my attending physician's documentation for any further recommendations. (2) Septic shock: (3) Pancytopenia: (4) Elevated LFTs: (5) DOM (acute kidney injury): (6) Aspiration pneumonitis: (7) Sepsis with acute hypoxic respiratory failure: Supervising Physician Co-Signing Physician Notes Patient seen and examined with Kvng HEAD. I agree with his assessment and plan aside for any additions/exceptions noted: Patient with evidence of septic shock likely from ascending cholangitis. Patient with also evidence of pancytopenia. Will consider sending a rapid HIV study. Other possibilities include TTP/ITP/atypical HUS. Would send a peripheral smear and Lopez 13. Will defer to tertiary care center at this time. Thrombocytopenia may also be from consumption related to sepsis. Fibrinogen le luis a will need to be evaluated. He will need to undergo cholecystostomy tube and possible ascending cholangitis. This will be evaluated in the tertiary Medical Center. Continue full ventilator support. Continue to maintain maps above 65. Patient to DOM. He is getting another 500 mL Normosol bolus. Continue PPI for prophylaxis. Continue broad-spectrum antibiotics. Treating with doxycycline for atypical infections as well. Patient stable to transfer to tertiary care center. History of Present Illness Attending Physician: Avis Machado MD History of Present Illness Patient is a 49-year-old male without significant past medical history who initially presented to the emergency department with complaints of feeling ill with chills, fevers, rigors, weakness, diarrhea, malaise and fatigue that is been ongoing for the past 48 hours. He presented with hypotension and jaundice. He was found to be pancytopenic, elevated LFTs, and DOM. Underwent sepsis protocol and received a total of 4 L NSS bolus in the ED and broad-spectrum antibiotics. Rapid COVID-19 performed in the emergency department and negative. Patient required vasopressors and was transported to the ICU. He underwent CT of the abdomen in route to ICU. Preliminary report of the CT abdomen suggestive of acute cholecystitis and abdominal exam revealed guarding in the right upper quadrant on arrival to the ICU. Case was discussed with the general surgeon, however given that however given that the patient is severely septic, was recommended that patient transfer for percutaneous drainage with IR. [facility] [address] [facility] transfer center was contacted and arrangements were made to transfer patient to [place] and patient was accepted by Dr. Estevez glass enamel mixer. Patient intubated and central line and A-line inserted. Now awaiting arrangements for transport for transfer to tertiary center at [facility]. Allergies Allergy/AdvReac Type Severity Reaction Status Date / Time No Known Allergies Allergy Verified 12/05/19 02:27 Home Medications Home Medications Medication Instructions Recorded Confirmed Type acetaminophen [Tylenol Extra 500 - 1,000 mg PO DIRECTED PRN 12/05/19 12/05/19 History Strength] Patient History Medical History (Updated 12/05/19 @ 07:53 by ADILENE Wang) No significant past medical history Surgical History (Updated 12/05/19 @ 03:55 by Lawanda Barton DO) No significant past surgical history Family History (Updated 12/05/19 @ 03:55 by Lawanda Barton DO) Other Family history non-contributory Social History (Updated 12/05/19 @ 03:55 by Lawanda Barton DO) Smoking Status: Never smoker Hx Alcohol Use: No Hx Substance Use: No Preferred Language: Yi Communication Ability: Effective Electron Microscopist Required: No Beliefs That Will Affect Care: None Current Living Situation: Spouse Feels Safe at Home: Yes Assistive Devices: Oxygen - Continuous Review of Systems Review of Systems: All systems reviewed & are unremarkable except as noted in HPI & below Physical Exam Constitutional: well groomed and cooperative Eyes: PERRL, conjunctivae normal, anicteric sclerae ENMT: external ear and nose normal, oropharynx normal Neck: trachea midline, no thyromegaly Respiratory: normal respiratory effort, lungs clear to auscultation + tachypneic Cardiovascular: RRR, no murmur, no edema Heart Sounds: normal S1 and normal S2 Vessels: no JVD Extremities: normal capillary refill; no edema Gastrointestinal (Abdomen): Bowel sounds normoactive and abdomen is nondistended. Patient did display significant tenderness and guarding which was localized to the right upper quadrant Skin: no rashes, warm and dry Neurologic: PERRL, EOMI, accommodation nl, no face palsy, no dysarthria Psychiatric: A+Ox3, euthymic affect Results & Data Results & Data ([facility]) Vital Signs (Past 12 Hours) Vital Signs Temp Pulse Pulse Resp BP BP Pulse Ox 12/05/19 06:23 83 16 100 12/05/19 04:45 37 C 95 H 18 82/62 L 97 12/05/19 04:40 89 20 90/58 L 97 12/05/19 04:30 88 22 84/62 L 95 12/05/19 04:25 88 20 74/46 L 94 12/05/19 04:20 87 20 67/44 L 94 12/05/19 04:15 87 22 73/44 L 93 12/05/19 04:10 88 22 71/43 L 93 12/05/19 04:05 87 24 85/57 L 95 12/05/19 04:00 81 24 76/52 L 95 12/05/19 03:56 84 24 73/47 L 95 12/05/19 03:55 90 24 69/45 L 94 12/05/19 03:50 83 24 76/54 L 95 12/05/19 03:45 79 24 76/53 L 12/05/19 03:40 80 24 78/56 L 97 12/05/19 03:35 85 24 77/55 L 98 12/05/19 03:30 82 24 81/42 L 94 12/05/19 03:25 84 23 77/53 L 99 12/05/19 03:15 85 25 H 73/49 L 97 12/05/19 03:13 85 22 74/49 L 97 12/05/19 03:03 85 24 73/45 L 98 12/05/19 02:46 91 H 21 86/50 L 98 12/05/19 02:30 98 H 20 91/58 L 99 12/05/19 01:50 36.8 C 102 H 18 76/47 L 97 Coding Level of Care Code Critical Care 1st 30-74 mins Diagnoses Acute cholecystitis K81.0 Septic shock A41.9; R65.21 Pancytopenia D61.818 Elevated LFTs R79.89 DOM (acute kidney injury) N17.9 Aspiration pneumonitis J69.0 Sepsis with acute hypoxic respiratory failure A41.9; R65.20; J96.01 Time Spent (min) 71
--- NOTE | 2019-12-05 07:25 | Procedure Note ---
Procedure Note Date of Service December 05, 2019 Note ARTERIAL LINE PROCEDURE NOTE: Procedure: Arterial Line Placement Attending: Dr. Castro Provider: ADILENE Burnett Indication: Monitoring on Pressors Anesthesia: None Line placed emergently as patient intubated and on multiple vasopressors requiring continuous hemodynamic monitoring. A time-out was completed verifying correct patient, procedure, site, positioning, and implant(s) or special equipment if applicable. Allens test was performed to ensure adequate perfusion. Patients left wrist was prepped and draped in the usual sterile fashion. Ultrasound guidance was used to aid needle placement. A 20g Arrow arterial line was introduced into the left radial artery. Catheter was threaded, and the needle was removed with appropriate blood return. Good waveform was observed. The patient tolerated the procedure well. Con firmation of placement with ultrasound. Blood Loss: Minimal Complications: None Procedural Ultrasound Guidance: Procedure Date: 12/05/2019 Indication: Arterial line insertion Attending: Dr. Castro Provider: ADILENE Burnett Artery Identified: YES Line confirmed in Artery with ultrasound: Yes Complications: NONE Patient tolerated procedure: WELL Coding CPT Codes Tubes, Drains, and Vasc Access - Tubes, Drains, and Vasc Access: [id number] Place Catheter In Artery ([id number]) Tubes, Drains, and Vasc Access - Tubes, Drains, and Vasc Access: [id number] Ultrasound Guidance For Vascular ([id number]) [facility] [place] Codes (Charges) Tubes, Drains, and Vasc Access Procedure 1: Tubes, Drains, and Vasc Access: [id number] Place Catheter In Artery Procedure 2: Tubes, Drains, and Vasc Access: [id number] Ultrasound Guidance For Vascular
--- NOTE | 2019-12-05 07:26 | Procedure Note ---
Procedure Note Date of Service December 05, 2019 Note INTUBATION PROCEDURE NOTE: Provider: ADILENE Burnett Attending: Tian Castro A time-out was completed verifying correct patient, procedure, site, positioning. Patient was evaluated and required intubation for hypoxic respiratory failure and required security airway for transport to tertiary center in the setting of severe sepsis and acute cholecystitis. Sedative agent used: Propofol Paralysis agent used: Succinylcholine Emergent consent was implied given patients rapidly declining clinical status and need for airway protection. The patient was prepared in the appropriate fashion. Sedation was achieved utilizing propofol and succinylcholine, per Dr. Mayen administration. The patient was easily ventilated using [id number] to achieve adequate oxygenation. A 8.0 Peruvian endotracheal tube was placed under video laryngoscope to 24 cm at the lip. The stylette was removed and balloon was inflated with 10mL of air. Appropriate Colorimetric change was appreciated. Bilateral breath sounds were heard without air sounds in the abdomen. Dr. Mayen was present for the entire procedure. Post Intubation Chest X-ray confirms placement without pneumothorax. Patient tolerated the procedure well and there were no immediate complications. Coding CPT Codes Resuscitation - Resuscitation: 59075 Endotracheal Intubation, emergency ([id number]) [facility] [place] Procedure Codes (Charges) Resuscitation Resuscitation: 64105 Endotracheal Intubation, emergency
--- NOTE | 2019-12-05 07:26 | Procedure Note ---
Procedure Note Date of Service December 05, 2019 Note INTERNAL JUGULAR CENTRAL LINE PROCEDURE NOTE: Procedure: Internal Jugular Central Line Placement Attending: Dr. Castro Provider: ADILENE Burnett Indication: Central Drug Administration as patient is requiring multiple vasopressors Anesthesia: None Line placed emergently in the setting of severe sepsis secondary to acute cholecystitis A time-out was completed verifying correct patient, procedure, site, positioning, and implants(s) or special equipment if applicable. Patients right neck was cleansed and draped in the typical sterile fashion using Chloraprep. The Internal Jugular Vein and Carotid Artery were identified using ultrasound. Internal Jugular vein was cannulated under direct ultrasound guidance using an introducer needle on a syringe. Good venous blood return was maintained prior to removal of syringe from introducer needle. Using Seldinger Technique, a guide wire was advanced through the introducer needle without resistance. The introducer needle was removed and guide wire visualized with ultrasound within the Internal Jugular Vein. A small incision was made in penetrating fashion at the guide wire insertion site utilizing an 11 blade scalpel. The dilator was advanced to the vessel without resistance. The dilator was exchanged for the triple lumen catheter which was advanced into the vessel without resistance. The guide wire was removed intact from the catheter without issue. Claves were heidi jimy on each catheter tip with confirmation of good blood flow from each lumen. Each port was easily flushed with sterile saline. The catheter was placed at 15 cm and sutured in place. BioPatch was applied to the catheter and a sterile Tegaderm dressing was applied over the catheter with careful attention to sterility. Patient tolerated procedure well. No immediate complications were met. Post procedure x-ray was completed, placement was appropriate and no pneumothorax was noted. Images obtained are saved for permanent record Procedural Ultrasound Guidance: Procedure Date: 12/05/2019 Indication: Central line insertion Attending: Dr. Castro Provider: ADILENE Burnett Artery AND Vein visualized: Yes Compressible Vein: Yes Guidewire or Short Catheter seen in vein prior to dilation: Yes Line confirmed in Vein with ultrasound: Yes Coding CPT Codes Tubes, Drains, and Vasc Access - Tubes, Drains, and Vasc Access: [id number] Place catheter in vein superior or inferior vena cava ([id number]) Tubes, Drains, and Vasc Access - Tubes, Drains, and Vasc Access: [id number] Ultrasound Guidance For Vascular ([id number]) [facility] [place]Charges) Tubes, Drains, and Vasc Access Procedure 1: Tubes, Drains, and Vasc Access: [id number] Place catheter in vein superior or inferior vena cava Procedure 2: Tubes, Drains, and Vasc Access: [id number] Ultrasound Guidance For Vascular
--- NOTE | 2019-12-05 08:01 | XRay Report ---
XR chest 1V portable HISTORY: 49 years-old Male post intubation and central line placement acute respiratory failure COMPARISON: Chest radiograph and CT abdomen and pelvis 12/05/2019 TECHNIQUE: Portable AP view of the chest FINDINGS: Endotracheal tube overlies the midline, 3.2 cm superior to the umang. Right IJ central venous cathet er distal tip terminates in the expected location of the mid SVC. Enteric tube courses below the diap hragm outside the [id number]. Cardiac silhouette is normal. Interval development of pulmonary vasc ular congestion with interstitial opacities. Airspace opacities involving medial right lung base. No pneumothorax or pleural effusion. Bones appear intact. IMPRESSION: 1. Lines and tubes as above. 2. No pneumothorax. 3. Worsening pulmonary vascular congestion with interstitial opacities suggestive of pulmonary edema and/or atypical pneumonia. ACT 112: Negative or not required by law. The above report was generated using voice recognition software. It may contain grammatical, syntax o r spelling errors. Electronically signed by: Bharat Meadows M.D. 12/05/2019 8:00 AM
[2019-12-05 08:07] LABS: iSTAT Arterial Blood Gas HCO3 22 meg/L (19-24); iSTAT Arterial Blood Gas pCO2 49 mmHg (35-46); iSTAT Arterial Blood Gas pH 7.26 (7.35-7.45); iSTAT Arterial Blood Gas pO2 121 mmHg (80-95); iSTAT Carbon Dioxide 23 mmol/L (24-31); iSTAT FiO2 40 %; iSTAT Site Art Line
--- NOTE | 2019-12-05 08:15 | CT Scan Report ---
CT OF THE ABDOMEN AND PELVIS WITHOUT CONTRAST CLINICAL HISTORY: sepsis, abdominal pain COMPARISON STUDY: No previous studies for comparison. TECHNIQUE: Axial images of the abdomen and pelvis were obtained without IV contrast. Images were revi ewed in the axial, sagittal, and coronal planes. Automated exposure control was utilized for the alexandra dy. A dose lowering technique was utilized adhering to the principles of ALARA. FINDINGS: Visualized portions of the lower chest demonstrate mild right middle lobe and right lower l obe airspace opacity. There is minimal left lower lobe airspace opacity. No pneumatosis, free air or portal venous gas is present. Evaluation of the abdomen and pelvis is suboptimal on this unenhanced e xamination. There are suspected periportal edema. There is moderate gallbladder wall thickening with a small amount of pericholecystic fluid. No peripancreatic infiltration is present. The spleen, adren al glands and kidneys are normal. No hydronephrosis. There is no evidence for a bowel obstruction. No suspicious osseous lesions are noted. No urinary calculi are present. The appendix is partially visu alized. Visualized portions are normal. IMPRESSION: 1. Mild bilateral lower lung airspace opacity which favors an infectious process. 2. Moderate gallbladder wall thickening with small amount of pericholecystic fluid. Gallbladder wall thickening is a nonspecific finding and right upper quadrant ultrasound could be performed if suspici on for acute cholecystitis. 3. No urinary calculi or hydronephrosis. 4. No bowel obstruction. ACT 112: Negative or not required by law. Electronically signed by: Shiraz Hernandez M.D. 12/05/2019 8:13 AM
--- NOTE | 2019-12-05 08:17 | XRay Report ---
XR chest 1V portable CLINICAL HISTORY: fever, hypotension COMPARISON STUDY: No previous studies for comparison. FINDINGS: Lung volumes are normal. Lungs are clear. There is no pneumothorax or pleural effusion. Car diac size is normal. Mediastinal contours are normal. There is no evidence for pulmonary edema. IMPRESSION: No acute cardiopulmonary findings. ACT 112: Negative or not required by law. Electronically signed by: Shiraz Hernandez M.D. 12/05/2019 8:15 AM
[2019-12-05 08:44] LABS: Hepatitis B Surface Antigen Neg (Neg)
[2019-12-05 09:13] LABS: Hepatitis C IgG 13Yrs+Old_Rflx Neg (Neg)
[2019-12-05] MEDS ORDERED: fentaNYL citrate 100 MCG/2 ML VIAL IV ONE (10:59)
[2019-12-05] MEDS ORDERED: SUCCINYLCHOLINE CHLORIDE 20 MG/ML 10 ML VIAL IV ONE (10:59)
--- NOTE | 2019-12-05 13:11 | Discharge Summary ---
Date of Service December 05, 2019 Admission HPI Per Admitting Provider Richard Cortez is a 49yo C male with no significant past medical or surgical history presenting with hypotension. Patient developed acute onset of fevers/chills/rigors/body aches/muscle spasm starting yesterday. He also has severe RUQ pain, jaundice and scleral icterus. He has had multiple episodes of watery, non-bloody diarrhea and one episode of non-bloody/non-bilious vomiting. He denies CP/cough/SOB. No contact with Covid-19 positive individuals. Covid- 19 testing here is NEGATIVE Patient has had multiple tick bites in the past and has been treated for Lyme disease before. No recent tick bites. No sick contacts or contacts with similar symptoms No recent travel Upon arrival to the ER patient was afebrile, hypotensive at 76/47, tachycardic to 102bpm. He was administered 3L of NSS with no improvement in blood pressure, currently 76/53. Patient with no additional complaints at this time. ER Courese: Ceftriaxone 2gm, Doxycycline 100mg, NSS x 3L, Levophed gtt initiated Admission Exam Per Admitting Provider General: thin male resting in bed, mild distress secondary to RUQ discomfort Skin: warm, dry, intact, no rashes or lesions, +Jaundice HEENT: NC/AT, PERRL, EOMI, +icteric sclera, conjunctiva without injection, external ear normal to inspection and nontender, nares patent, dry mucus membranes, dentition intact, no oropharyngeal lesions, neck supple, trachea midline, no LAD, no thyromegaly, no JVD Heart: +S1/S2, regular, no m/r/g Lungs: equal air entry bilaterally, no rales/rhonchi/wheezes Abd: +BS, soft, ND, +RUQ tenderness with voluntary guarding Ext: warm, 2+ pulses in UE/LE bilaterally, no clubbing/cyanosis or edema Neuro: nonfocal, patient AA&O x 4, speech intact, no facial droop, moving all extremities on command with equal strength 5/5 Principal Diagnosis Shock Discharge Exam Constitutional average body habitus and + mechanically ventilated Eyes PERRL, conjunctivae normal, anicteric sclerae ENMT external ear and nose normal, oropharynx normal Neck normal visual inspection Respiratory - good air movement in all lung bello - no w/r/r Cardiovascular RRR, no murmur, no edema Chest (Breasts) normal inspection/palpation of breasts Gastrointestinal (Abdomen) - soft - visual inspection normal Skin no rashes, warm and dry Neurologic - sedated on vent Discharge Data Allergies Allergy/AdvReac Type Severity Reaction Status Date / Time No Known Allergies Allergy Verified 12/05/19 02:27 Consultations 12/05/19 03:02 ED Decision to Admit Stat 12/05/19 05:07 Consult Case Management - Discharge Planning Routine Consult Ic Engineer Routine 12/05/19 06:00 Burn CD for patient Stat Ordered Studies 12/05/19 04:18 CT abd pelvis wo con Urgent 12/05/19 05:59 US point of care ultrasound Stat Hospital Course (1) Septic shock: 49-year-old male without medical history presented with severe sepsis with likely source of acute cholecystitis per CT imaging. Now intubated and on multiple vasopressors for septic shock. Septic shock given patient exam with CT imaging most likely source appears to be cholecystitis and patient transferred to [facility] ([facility]) [place], [place] -Was also noted to have infectious/inflammatory process and bilateral lung bello on CT imaging, most likely aspiration as patient has continually been vomiting -Required vasopressors, levo and vaso -CVC and A-line inserted emergently -Cortisol level 66.82, did stress dose with hydrocortisone 100 mg after lab draw No history of heart failure and patient is reportedly athletic at baseline, troponin negative -blood, urine cultures pending -anaplasmosis (given pancytopenia) and hepatitis labs drawn and pending -COVID negative -started on broad coverage with Cefepime, Flagyl, and Doxy Acute hypoxic respiratory failure mechanically ventilated -Patient did become increasingly hypoxic with significantly increased oxygen demand, decision made to intubate prior to transfer to tertiary center to secure airway Cholecystitis CT abdomen preliminary report showed pericholecystic fluid with gallbladder thickening suspicion for cholecystitis and patient presents with right upper quadrant abdominal pain and tenderness -Elevated LFTs and jaundice consistent with diagnosis -Given severity of sepsis patient not candidate for surgical intervention and has been accepted to [facility] with tentative plan for percutaneous drainage with IR DOM likely prerenal/ATN in the setting of hypotension/septic shock -was getting IV fluid resuscitation -Avoided nephrotoxins and renally adjusted medications Pancytopenia bone marrow suppression in the event of severe sepsis? -Would defer further work-up to [facility] Total Time Total Time Spent Total Time Spent (In Minutes): Per attending attestation. Discharge Plan Discharge Items Patient Disposition: Transfer Acute Care Hospital Reason For Visit: HYPOTENSION Discharge Diagnosis: Shock Activity: Per Instructions section Non-emergency contact: Primary Care Provider Call non-emergency contact if: you have any medication questions Follow-up/Referrals: Guerita Dong CRNP [Primary Care Provider] - Diet: Nothing by Mouth Addtl Attending Provider Instructions: care per [facility] Pending Studies at Discharge: Yes Studies:: blood cultures urine cultures anaplasmosis labs hepatitis serologies Stand-Alone Forms: My [facility] Skilled Items Patient informed of condition?: No DNR: No Discharge Level of Care: Other Communicable Disease: No Discharge Prognosis: Stable Lines: PICC Urinary Catheter: Yes Medications and DC Order Prescriptions: Continued acetaminophen [Tylenol Extra Strength] 500 mg Tablet 500 - 1,000 mg PO DIRECTED PRN (Reason: Fever Or Pain) RF: 0 Discharge Orders: Discharge Order (Routine); Ordered 12/05/19 Ordered By: Lamin David Admission Data Admit Date/Time: 12/05/19 03:41 Attending Provider: Avis Machado Admit Provider: Lawanda Barton Primary Care Provider: Guerita Dong Other Providers: Lawanda Barton ; Danish Castro Other Interventions: Discharge Summary Assessment (RN) Last Done: 12/05/19 11:53 Supervising Physician Co-Signing Physician Notes Resident Physician Supervision Note: I independently interviewed and examined the patient and verified the bowman history and physical, reviewed labs and image studies, discussed the case with the resident Dr. David and agree with the findings and care plan. Resident Activity Tracking Resident Involvement: Resident Care Provided Care Provided: Adult Hospital Medicine CBC Results Results Complete Blood Count Results: RBC 4.17 M/uL (4.7-6.1) L 12/05/19 WBC 1.15 K/uL (4.8-10.8) L 12/05/19 Hgb 13.5 g/dL (14.0-18.0) L 12/05/19 Hct 38.7 % (42-52) L 12/05/19 Plt Count 72 K/uL (130-400) L 12/05/19 Chemistry ([facility]) Results [facility] Results: Sodium 137 mmol/L (136-145) 12/05/19 Potassium 3.1 mmol/L (3.5-5.1) L 12/05/19 Chloride 105 mmol/L (98-107) 12/05/19 BUN 44 mg/dl (7-18) H 12/05/19 Creatinine 2.33 mg/dl (0.6-1.4) H 12/05/19 Glucose 131 mg/dl (70-99) H 12/05/19
[2019-12-06] MEDS ORDERED: cefTRIAXone SODIUM 2,000 MG in DEXTROSE 5% 50 ML IV SCH (04:00)
--- NOTE | 2019-12-06 08:34 | Electrocardiogram Report ---
Test Reason : Blood Pressure : / mmHG Vent. Rate : 092 BPM Atrial Rate : 092 BPM P-R Int : 130 ms QRS Dur : 126 ms QT Int : 368 ms P-R-T Axes : 082 055 011 degrees QTc Int : 455 ms Normal sinus rhythm Right bundle branch block Nonspecific T wave abnormality Abnormal ECG No previous ECGs available Confirmed by Santos Bosch ([id number]) on 12/06/2019 8:33:58 AM Referred By: REFERRED SELF Confirmed By:Santos Bosch
[2019-12-06 22:31] LABS: Hepatitis A Antibody IgM NON-REACTIVE (NON-REACTIVE); Hepatitis B Core Antibody IgM NON-REACTIVE (NON-REACTIVE)
[2019-12-08 19:55] LABS: Babesia microti IgG <1:64 titer (<1:64)
== END 2019-12-05 11:00 | disposition short-term general hospital (02) | DRG 871 ==
LOC: ED 01:39 → 1E 03:41 → SUATTDRO 03:41 → 1E 04:30